=== PATIENT | male | born 1960 | race Caucasian/White ===

== ENCOUNTER 2019-07-08 05:18 | Inpatient (IN) ==
--- NOTE | 2019-07-03 14:34 | Anesthesiology Consultation ---
Date of Service July 03, 2019 Assessment & Plan (1) Encounter for pre-operative examination: COVID Status: As of 07/02 nurse assessment, patient denies travel to endemic area, known exposure/sick contacts, symptoms, or testing for coronavirus. Chart Review Chart Review: Acceptable Risk for Surgery (pending pre-op labs and surgeon- ordered PCP Clearance) and Patient NOT seen in Pre Admission Testing History Surgery Operation Date: 07/08/19 11:50 Proposed Procedures p Left Total Knee Arthroplasty - Dejuan Dillard DO Height/Weight Height: 5 ft 6 in Weight: 86.183 kg Allergies Allergy/AdvReac Type Severity Reaction Status Date / Time morphine AdvReac Mild n/v Verified 07/03/19 13:52 Medications Home Medications Medication Instructions Recorded Confirmed Last Taken calcium carbonate [Tums] 200 mg PO UD PRN 04/23/19 07/03/19 Unknown tamsulosin 0.4 mg PO UD PRN 04/23/19 07/03/19 Unknown Past Medical History Medical History Acid reflux occasional Enlarged prostate History of basal cell cancer back s/p excision Osteoarthritis TMJ (temporomandibular joint disorder) remote hx locking Past Family History Family History Father Family hx of colon cancer Past Surgical History Surgical History History of arthroscopy of left knee History of colonoscopy History of shoulder surgery RIGHT History of total right knee replacement Hx of Achilles tendon repair LEFT Social History Smoking Status: Never smoker Do You Dip or Chew Tobacco: No Hx Alcohol Use: Yes Alcohol type: beer alcohol intake frequency: a few times a month Hx Substance Use: No substance use type: does not use Testing Electrocardiogram Date: 04/24/19 Findings: + NSR @ (62bpm) Chest X-Ray Date: 04/24/19 Findings: + NAD
--- NOTE | 2019-07-07 08:35 | History & Physical Report ---
Date of Service July 07, 2019 date of surgery: 07-08-19 Assessment & Plan (1) Arthritis of knee, left: Risks and benefits of procedure discussed in detail today, patient would like to proceed with a Left total knee replacement at [facility] as scheduled. Will place on ASA 81mg po bid x 1 month post op, f/u 2 weeks post op for routine post-operative care and x-ray, sooner if having any problems. will make arrangements for HHPT at the time of discharge. At this point in time, has failed conservative measures and would like to proceed with surgical intervention. History of Present Illness Chief Complaint: left knee pain Primary Care Provider: Rachael Khan MD Brandon is a 58 year old male who complains of left knee pain, presents for pre-op evaluation prior to a left total knee replacement by dr Dillard at [facility] on 07-08-19. he complains of pain, crepitus, decreased range of motion, instability and stiffness in the left knee. He states that the symptoms have been chronic and non-traumatic. He states that the symptoms occur constantly with intermittent worsening. Currently the patient states that the symptoms are mode rate-severe. The pain is described as aching, sharp and throbbing. The symptoms occur continuously. The symptoms are aggravated by ascending stairs, daily activities, first steps while awake walking. Prior NSAIDs include IBU and Aleve. He has been treated with previous cortisone and visco injections in the past without much relief. he has also had previous left knee scope. Allergies Allergy/AdvReac Type Severity Reaction Status Date / Time morphine AdvReac Mild n/v Verified 07/03/19 13:52 Home Medications Home Medications Medication Instructions Recorded Confirmed Type calcium carbonate [Tums] 200 mg PO UD PRN 04/23/19 07/03/19 History tamsulosin 0.4 mg PO UD PRN 04/23/19 07/03/19 History Past Med/Surg History Medical History Acid reflux occasional Enlarged prostate History of basal cell cancer back s/p excision Osteoarthritis TMJ (temporomandibular joint disorder) remote hx locking Surgical History History of arthroscopy of left knee History of colonoscopy History of shoulder surgery RIGHT History of total right knee replacement Hx of Achilles tendon repair LEFT Family History Father Family hx of colon cancer Social History Preferred Language: German Communication Ability: Effective Social Work Administrator Required: No Beliefs That Will Affect Care: None Current Living Situation: Spouse Feels Safe at Home: Yes Smoking Status: Never smoker Second Hand Exposure: No ; Hx Alcohol Use: Yes Alcohol type: beer Hx Substance Use: No Review of Systems Review of Systems: All systems reviewed & are unremarkable except as noted in HPI & below Constitutional: no fever, no chills and no sweats Respiratory: no cough and no dyspnea Cardiovascular: no chest pain, no dyspnea and no orthopnea Gastrointestinal: no abdominal pain, no nausea and no vomiting Musculoskeletal: as per Subjective / HPI Physical Exam Physical Exam: Ht: 5ft 6in Wt: 86.2kb Constitutional: WD/WN, vitals as above no acute distress Respiratory: normal respiratory effort, lungs clear to auscultation no respiratory distress, no labored breathing and does not use accessory muscles Cardiovascular: RRR, no murmur, no edema Gastrointestinal (Abdomen): normal bowel sounds, soft, nontender, no hepatosplenomegaly Musculoskeletal: Knee: + knee abnormal to inspection (LEFT KNEE), + effusion (+1 effusion), + surgical incision (well healed portals), + limited ROM of knee (ROM 0/3/110), + knee ROM with crepitation, + joint line tenderness (medial joint line) and + Misti's sign positive; no deformity, no skin erythema, no ecchymosis, no valgus laxity, no varus laxity, anterior drawer test negative, Maria Luz's sign negative and pivot shift test negative Results & Data Results & Data ([facility]) Diagnostic Findings left knee series confirm advanced degenerative changes to the left knee, greatest medial compartments and patellofemoral joint, showing joint space narrowing, osteophyte formation and subchondral sclerosis. no acute bony pathology noted.
[2019-07-08] MEDS ORDERED: TRANEXAMIC ACID 1,000 MG **IV Pre-op IV SCH (06:00)
[2019-07-08] MEDS ORDERED: CEFAZOLIN 2000MG 2,000 MG/15 ML SYR IV SCH (06:00)
[2019-07-08] MEDS ORDERED: METOCLOPRAMIDE HCL 10 MG TABLET PO SCH (06:00)
[2019-07-08] MEDS ORDERED: FAMOTIDINE 20 MG TAB PO SCH (06:00)
[2019-07-08] MEDS ORDERED: ROPIVACAINE 0.5% HCL/PF 150 MG, BUPIVACAINE 0.5% MPF 30 ML, EPINEPHrine 30MG/30ML (OR U... INFIL SCH (06:00)
[2019-07-08] MEDS ORDERED: ACETAMINOPHEN 500 MG TAB PO SCH (06:00)
[2019-07-08] MEDS ORDERED: dexAMETHasone 4 MG TAB PO SCH (06:00)
[2019-07-08] MEDS ORDERED: CeleBREX 200 MG CAP PO SCH (06:00)
[2019-07-08] MEDS ORDERED: TRANEXAMIC ACID 1,000 MG **IV Intra-op IV SCH (06:00)
[2019-07-08] MEDS ORDERED: LR 500ML BOLUS, THEN 15ML/HR IV SCH (06:00)
[2019-07-08] MEDS ORDERED: GABAPENTIN 600 MG DOSE PO SCH (06:00)
[2019-07-08] MEDS ORDERED: BUPIVACAINE 0.5 % 5 MG/1 ML PF 10ML VIAL ONE (06:18)
[2019-07-08] MEDS ORDERED: ROPIVACAINE 0.5% 5 MG/ML 30 ML VIAL ONE (06:18)
[2019-07-08] MEDS ORDERED: EPINEPHrine INJ 1 MG/ML AMP ONE (06:18)
[2019-07-08] MEDS ORDERED: fentaNYL citrate 100 MCG/2 ML VIAL ONE (06:54)
[2019-07-08] MEDS ORDERED: PROPOFOL IV EMULSION 10 MG/ML 20 ML VIAL IV ONE ×3 (06:54→08:44)
[2019-07-08] MEDS ORDERED: LIDOCAINE HCL 2% 2 ML VIAL/AMP(20MG/ML) INFIL ONE (06:54)
[2019-07-08] MEDS ORDERED: MIDAZOLAM HCL 1 MG/ML 2ML VIAL ONE (06:54)
[2019-07-08] MEDS ORDERED: BACITRACIN INJ 50,000 UNIT VIAL ONE (06:56)
[2019-07-08] MEDS ORDERED: ORTHO JOINT ANESTHETIC ONE (06:56)
--- NOTE | 2019-07-08 07:15 | History & Physical Bridge Note ---
Date of Service July 08, 2019 History & Physical Bridge Note I have examined the patient, reviewed the History & Physical and in the interval since the performance of the History & Physical I have noted the following changes of clinical significance: no changes noted
[2019-07-08] MEDS ORDERED: ONDANSETRON INJ 2 MG/ML 2 ML VIAL ONE (07:56)
[2019-07-08] MEDS ORDERED: GLYCOPYRROLATE 0.2 MG/ML VIAL ONE (07:56)
[2019-07-08] MEDS ORDERED: DEXAMETHASONE SOD INJ 4 MG/ML VIAL ONE (07:56)
--- NOTE | 2019-07-08 08:27 | Operative Report ---
Post Operative Report Pre & Post Diagnosis Operation Date: 07/08/19 07:15 Pre-Op Diagnosis: LEFT KNEE OSTEOARTHRITIS Post-Op Diagnosis: LEFT KNEE OSTEOARTHRITIS I identified the patient and participated in the time-out.: Yes Procedure Operation Date: 07/08/19 07:15 Actual Procedures p Left Total Knee Arthroplasty(Left) utilizing [employer] [place] 2 patient matched total knee arthroplasty size 6 femur 5 tibia 11 polyethylene 32 oval patella- Dejuan Dillard DO Surgeon Dejuan Dillard DO Kitchen Bath Designer Luis Felipe COLE Estimated Blood Loss 5 Findings Consistent with Post-Op Diagnosis Patient presents with severe end-stage tricompartmental degenerative joint disease varus alignment [id number] subchondral cystic changes marginal osteophytes moderate to large effusion left knee Specimens Bone and cartilage Drains Medium bore Hemovac Anesthesia Type MAC Spinal Regional Complications none Disposition Accompanied Patient To Recovery: No Disposition: Recovery Room Indications Patient presents for left total knee arthroplasty after failed attempted conservative management and physical therapy anti-inflammatories relative rest activity modification corticosteroid injection Visco supplementation bracing the above intraoperative findings no time surgery. Description of Procedure After proper prepping and draping of the left lower extremity anterior midline incision was made over the region of the extensor extensor mechanism after meticulous hemostasis was obtained and maintained in subcutaneous tissues a medial parapatellar incision was made The patella was subluxed lateralward the medial lateral gutter were cleaned from any hypertrophic synovitis and scar tissue of the distal femoral block was placed and the distal femoral osteotomy cut was made subsequently the chamfers anterior and posterior osteotomy cuts were made utilizing the 4-in-1 block the tibia was subsequently subluxed anteriorward medial and ateral meniscal remnants were excised in their entirety remnants of the anterior and posterior cruciate ligaments were excised in their entirety excellent exposure of the proximal tibia was obtained the tibial osteotomy guide was placed on the proximal tibial osteotomy cut was made once again the knee was irrigated with copious amounts of sterile saline solution the patella was subsequently everted lateralward thickened scar tissue around the patella was removed the patella was subsequently cut utilizing a freehand technique and was drilled prepared for final preparation and placement of patella socially flexion-extension gaps were checked and the equal and symmetric trials were placed to the appropriate femoral and tibial trials with poly-spacer being placed for equal flexion and extension gaps and full range of motion including extension to 0 and flexion to 140 the trial components after having been taken to recovery range of motion was subsequently removed meticulous hemostasis was obtained and maintained subsequently a knee block injection of joint cocktail including ropivacaine 0.5% 150 mg. Bupivacaine 0.5% epinephrine 1-200,030 mL's toradol 30 mg dexamethasone 4 mg ketamine 10 mg clonidine 100 micrograms normal saline solution 30 mg was infiltrated into the soft tissues of the posterior knee medial lateral gutters and periosteal synovium special attention was paid to protect neurovascular structures at all times subsequently trial components having been removed the knee was irrigated with sterile saline solution. debris was removed the proximal tibia was subsequently prepared and was made ready for the placement of the tibial component tibial component was also cemented and tamped into position the femoral component was subsequently placed and cemented in the position the patellar component was subsequently cemented in position because hemostasis once again obtained and maintained wound having been thoroughly irrigated with debridement and debridement lavage was performed as well as a medial parapatellar incision closed with #1 Vicryl in interrupted fashion subcutaneous was closed with #2 Vicryl skin was closed with skin clips. PA-C was necessary for prepping and drapping as well as wound closure of deep fascia Sub cutaneous tissue and skin and was necessary for the case. A sterile compressive dressing was placed patient was taken to recovery in stable condition of report dictated by Nishant I attest to the content of the Intraoperative Record and any orders documented therein. Any exceptions are noted below. I attest to the content of the Intraoperative Record and any orders documented therein. Any exceptions are noted below.
[2019-07-08] MEDS ORDERED: ePHEDrine sulfate 50 MG/ML SYR ONE (08:33)
[2019-07-08] MEDS ORDERED: ePHEDrine sulfate 50 MG/ML AMP IV PRN (08:43)
[2019-07-08] MEDS ORDERED: ATROPINE SULFATE 0.1 MG/ML 10ML SYR IV PRN (08:43)
--- NOTE | 2019-07-08 09:36 | XRay Report ---
LEFT KNEE 2 VIEWS History: Left total knee arthroplasty. Degenerative arthritis. Postop. FINDINGS: The patient is status post a left total knee arthroplasty. The hardware is intact. No fract ure or dislocation. Skin karissa and surgical drains are in place. IMPRESSION: Left total knee arthroplasty. No evidence for hardware complication. ACT 112: Negative or not required by law. Electronically signed by: Aleks Childs M.D. 07/08/2019 9:34 AM
--- NOTE | 2019-07-08 09:51 | Anesthesiology Progress Note ---
Date of Service July 08, 2019 Anesthesia Post Procedure Vital Signs Vital Signs: Temp Pulse Pulse Resp BP Pulse Ox 07/08/19 09:35 37.0 C 79 14 111/70 98 07/08/19 09:25 72 17 110/65 99 07/08/19 09:15 81 22 110/66 100 07/08/19 09:05 36.7 C 91 H 15 98/56 L 98 07/08/19 05:37 36.8 C 68 20 132/86 96 Pain Intensity Left Knee: Pain Intensity: 0 Transfer of Care Handoff Completed per policy Notes Mental Status: alert / awake / arousable Patient Amnestic to Procedure: Yes Nausea / Vomiting: adequately controlled Pain: adequately controlled Airway Patency, RR, SpO2: stable & adequate BP & HR: stable & adequate Hydration State: stable & adequate Neuraxial Anesthesia: was administered and sensory block is resolving Anesthetic Complications: no major complications apparent
[2019-07-08] MEDS ORDERED: TAMSULOSIN HCL 0.4 MG CAP PO PRN (10:10)
[2019-07-08] MEDS ORDERED: bisacodyL 10 MG SUPP PR PRN (10:10)
[2019-07-08] MEDS ORDERED: HYDROmorphone INJ 0.5 MG/0.5 ML SYR IV PRN (10:10)
[2019-07-08] MEDS ORDERED: CALCIUM CARBONATE 500 MG CHEWABLE TAB PO PRN (10:10)
[2019-07-08] MEDS ORDERED: MAGNESIUM HYDROXIDE SUSP 30 ML UDC PO PRN (10:10)
[2019-07-08] MEDS ORDERED: ONDANSETRON INJ 2 MG/ML 2 ML VIAL IV PRN (10:10)
[2019-07-08] MEDS ORDERED: NALOXONE HCL 0.4 MG/1 ML VIAL/CARP IV PRN (10:10)
[2019-07-08] MEDS ORDERED: OXYCODONE HCL IR 5 MG TAB (IMMEDIATE RELEASE) PO PRN (10:10)
[2019-07-08] MEDS: SODIUM CHLORIDE 0.9% 1000ML 1,000 ML IV SCH ×2 (10:42→21:08)
[2019-07-08] MEDS: CEFAZOLIN 2000MG 2,000 MG/15 ML SYR IV SCH ×2 (14:25→22:26)
[2019-07-08] MEDS: ACETAMINOPHEN 500 MG TAB PO SCH ×2 (14:26→22:26)
[2019-07-08] MEDS: DOCUSATE SODIUM 100 MG CAP PO SCH (21:07)
[2019-07-08] MEDS: SENNA 8.6 MG TAB PO SCH (21:07)
[2019-07-09 06:21] LABS: Hemoglobin 13.6 g/dL (14.0-18.0); Mean Corpuscular Hemoglobin 31.1 pg (25-34); Mean Corpuscular Hgb Conc 34.9 g/dL (32-36); Mean Corpuscular Volume 89.2 fL (80-100); Mean Platelet Volume 9.6 fL (7.4-10.4); Platelet Count 205 K/uL (130-400); RDW Coefficient of Variation 13.1 % (11.5-14.5); RDW Standard Deviation 42.4 fL (36.4-46.3); Red Blood Count 4.37 M/uL (4.7-6.1); White Blood Count 10.86 K/uL (4.8-10.8)
[2019-07-09] MEDS: ACETAMINOPHEN 500 MG TAB PO SCH ×3 (06:27→21:03)
[2019-07-09 06:51] LABS: BUN Creatinine Ratio 13.4 (10-20); Calcium 8.1 mg/dl (8.5-10.1); Creatinine Clr Calc Pharmacy 62.7 ml/min; Est GFR (Non-African American) 58.6
[2019-07-09] MEDS: DOCUSATE SODIUM 100 MG CAP PO SCH ×2 (08:33→21:04)
[2019-07-09] MEDS: MULTIVITAMIN TAB PO SCH (08:33)
--- NOTE | 2019-07-09 08:56 | Orthopedic Progress Note ---
Date of Service July 09, 2019 Assessment & Plan (1) Status post total left knee replacement: POD#1 Left TKA -PT/OT -Pain management -DVT prophylaxis-SCDs, TEDs, ASA 81mg BID x 1 mo -AM labs-hemoglobin at 13.6 this morning down from 16.4 pre op, acute blood loss anemia likely due to surgical loss and dilutional effect -D/C planning-Discharge home likely tomorrow. Will plan on HEP to start due to COVID-19 situation and will progress to OPPT. Admission and Anticipated Discharge Date Admission Date: July 08, 2019 Subjective POD #1 left TKA, patient is doing well, no complaints. Mild discomfort but overall states knee feels good. He is up ambulating around. Denies chest pain, sob, dizziness, light headedness. Is voiding without difficulty. Review of Systems Review of Systems: All systems reviewed & are unremarkable except as noted in HPI & below Physical Exam Physical Exam: Left knee dressing is c/d/i. Toes mobile, good dorsiflexion. No calf tenderness. Distally n/v status and sensation intact. Hemovac drain in place. Results & Data ([facility]) Vital Signs (Past 12 Hours) Vital Signs Temp Pulse Resp BP BP Pulse Ox 07/09/19 07:43 36.3 C L 62 16 121/75 95 07/09/19 03:10 36.6 C 69 18 117/69 97 07/08/19 23:17 36.5 C 77 18 113/62 93 Laboratory Results H & H 07/09/19 Range/Units 06:04 Hgb 13.6 L (14.0-18.0) g/dL Hct 39.0 L (42-52) %
[2019-07-09] MEDS: HYDROCODONE/ACETAMOPHEN 5/325MG TAB PO PRN ×2 (13:16→19:46)
[2019-07-09] MEDS: KETOROLAC TROMETHAMINE 15 MG/ML VIAL IV PRN (21:03)
[2019-07-09] MEDS: ASPIRIN 81 MG ECTAB PO SCH (21:03)
[2019-07-09] MEDS: SENNA 8.6 MG TAB PO SCH (21:04)
[2019-07-10] MEDS: KETOROLAC TROMETHAMINE 15 MG/ML VIAL IV PRN ×2 (04:27→10:22)
[2019-07-10] MEDS: ACETAMINOPHEN 500 MG TAB PO SCH (05:46)
[2019-07-10] MEDS: DOCUSATE SODIUM 100 MG CAP PO SCH (08:25)
[2019-07-10] MEDS: MULTIVITAMIN TAB PO SCH (08:25)
[2019-07-10] MEDS: ASPIRIN 81 MG ECTAB PO SCH (08:25)
--- NOTE | 2019-07-10 08:43 | Orthopedic Progress Note ---
Date of Service July 10, 2019 Assessment & Plan (1) Status post total left knee replacement: POD#2 Left TKA -PT/OT -Pain management -DVT prophylaxis-SCDs, TEDs, ASA 81mg BID x 1 mo -D/C planning-Discharge home today. Will plan on HEP to start due to COVID-19 situation and will progress to OPPT. Admission and Anticipated Discharge Date Admission Date: July 08, 2019 Subjective Postop day 2 Patient currently sitting up in bed awake and alert. No complaints. Pain is controlled. Denies shortness of breath, chest pain, lightheadedness. He is hoping to go home today. Physical Exam Physical Exam: Silverlon dressing is clean, dry, and intact. Calves are soft nontender. Neurovascular is intact. Toes are mobile. He has good dorsiflexion/plantar flexion strengths. Results & Data ([facility]) Vital Signs (Past 12 Hours) Vital Signs Temp Pulse Resp BP Pulse Ox 07/10/19 06:42 36.3 C L 65 19 127/80 95 07/09/19 23:08 36.9 C 68 19 128/79 96
--- NOTE | 2019-07-16 12:44 | Discharge Summary ---
Date of Service July 16, 2019 Admission HPI Per Admitting Provider Brandon is a 58 year old male who complains of left knee pain, presents for pre-op evaluation prior to a left total knee replacement by dr Dillard at [facility] on 07-08-19. he complains of pain, crepitus, decreased range of motion, instability and stiffness in the left knee. He states that the symptoms have been chronic and non-traumatic. He states that the symptoms occur constantly with intermittent worsening. Currently the patient states that the symptoms are moderate-severe. The pain is described as aching, sharp and throbbing. The symptoms occur continuously. The symptoms are aggravated by ascending stairs, daily activities, first steps while awake walking. Prior NSAIDs include IBU and Aleve. He has been treated with previous cortisone and visco injections in the past without much relief. he has also had previous left knee scope. Admission Exam Per Admitting Provider Physical Exam: Ht: 5ft 6in Wt: 86.2kb Constitutional: WD/WN, vitals as above no acute distress Respiratory: normal respiratory effort, lungs clear to auscultation no respiratory distress, no labored breathing and does not use accessory muscles Cardiovascular: RRR, no murmur, no edema Gastrointestinal (Abdomen): normal bowel sounds, soft, nontender, no hepatosplenomegaly Musculoskeletal: Knee: + knee abnormal to inspection (LEFT KNEE), + effusion (+1 effusion), + surgical incision (well healed portals), + limited ROM of knee (ROM 0/3/110), + knee ROM with crepitation, + joint line tenderness (medial joint line) and + Misti's sign positive; no deformity, no skin erythema, no ecchymosis, no valgus laxity, no varus laxity, anterior drawer test negative, Maria Luz's sign negative and pivot shift test negative Principal Diagnosis DJD left knee Discharge Exam Silverlon dressing is clean, dry, and intact. Calves are soft nontender. Neurovascular is intact. Toes are mobile. He has good dorsiflexion/plantar flexion strengths. Discharge Data Allergies Allergy/AdvReac Type Severity Reaction Status Date / Time morphine AdvReac Mild n/v Verified 07/08/19 05:53 Consultations 07/08/19 10:10 Consult Case Management - Discharge Planning Routine Procedures Performed Operation Date: 07/08/19 07:15 Actual Procedures p Left Total Knee Arthroplasty(Left) - Dejuan Dillard DO Ordered Studies 07/08/19 05:00 US - OR guided needle placemen Routine Hospital Course (1) Arthritis of knee, left: Patient was admitted on the above-noted date and had the above-noted surgery performed which he tolerated well.On his first postoperative day, he was doing well without complaints. He was up ambulating and denied chest pain, shortness of breath, lightheadedness. He was voiding without difficulty. Dressing was clean, dry, and intact. Toes are mobile. He had good dorsiflexion. Calves were soft and nontender and neurovascular was intact. Hemoglobin was 13.6. He was started on a PT and OT protocols and was continued on DVT prophylaxis and pain management. By his second postoperative day, he was awake and alert without complaints. Pain was controlled. Silverlon dressing was clean, dry, and intact. Calves were soft nontender. Neurovascular was intact. Toes were mobile. Vital signs are stable. He was progressing well with his physical therapy and was felt he be discharged home. Total Time Total Time Spent Total Time Spent (In Minutes): 5 Discharge Plan Discharge Items Patient Disposition: Home - Self-Care Reason For Visit: LEFT KNEE OSTEOARTHRITIS Discharge Diagnosis: Left knee osteoarthritis Activity: Per Instructions section Weightbearing: Left weightbearing Weightbearing Comment: As tolerated with walker Non-emergency contact: Surgeon Call non-emergency contact if: your pain is not controlled, your temperature is above 101.5, your wound has increased redness and your wound has increased drainage Follow-up/Referrals: Rachael Khan MD [Primary Care Provider] - Diet: Regular Addtl Attending Provider Instructions: ACTIVITY RECOMMENDATIONS: SELF CARE INSTRUCTIONS AFTER TOTAL KNEE REPLACEMENT A. You may need to continue a physical therapy program after discharge from the hospital. There are several options available to you. Your doctor will assist you in selecting the best one for you. 1. An out-patient facility 2 to 3 times a week for therapy or home therapy. 2. Continue working on all exercises taught to you in the hospital. Your goals should be to increase bending of your knee to 90 degrees and beyond and to fully straighten your knee. B. You may progress at your own pace from walking with a walker or crutches to a cane; then to no assistive devices. C. Make walking a part of your daily routine. Be up as much as comfortable with rest periods throughout the day. Rest with leg elevation is very important. Use the ice wrap frequently for the first 3-4 weeks. D. There are no restrictions on activities. You may ride in a car, shop, participate in manufacturing technician and all social activities. E. Wear the long elastic stockings (JONN hose) 20 hours a day for 2 weeks after surgery. They can be removed several times a day for laundering and for a bath. F. You may shower, no tub baths until cleared by your doctor. SPECIAL CARE INSTRUCTIONS: VERY IMPORTANT TO READ AND REVIEW A. There are a few signs you need to watch for after you are home. Call [facility] if you notice any of the followin. Increased severe knee pain. Some pain is expected especially when you exercise. 2. Increased swelling in your leg or knee; pain or swelling of the calf muscle in either lower leg. 3. Any fluid drainage from the incision. 4. Shortness of breath or chest pain. B. Please call [facility] at if you have any concerns or questions about your operation or recovery. The doctor or his nurse will return your call promptly. C. You must take antibiotics before dental work, bladder, bowel or other surgery. Your doctor will provide you with a permanent care to carry describing this precaution. IMPORTANT: * REMEMBER TO TAKE ASPIRIN, 81 MG, TWICE DAILY FOR 4 WEEKS UNLESS OTHERWISE DIRECTED. THIS IS YOUR BLOOD THINNER. * HIGH RISK PATIENTS MAY BE PRESCRIBED A STRONGER BLOOD THINNER. THIS WILL BE PROVIDED AT DISCHARGE. * CALL IF INCREASED PAIN, REDNESS, DRAINAGE OR FEVER GREATER THAT 101. * WEAR OJNN HOSE 20 HOURS PER DAY FOR 2 WEEKS. * Silverlon- This is a large adhesive bandage that contains silver ions. This helps your incision heal by fighting off bacteria and protecting it from the outside environment. You are permitted to shower with this dressing. This will remain on your incision for 7 days and then should be removed. Some visible blood or drainage through the dressing window is normal. If there is significant drainage or leaking noted before the 7 days notify your doctor's office immediately. Once removed, keep incision clean and dry. If there is any drainage or redness noted, please call your surgeon. . FOLLOW UP VISIT: If appointment is not already scheduled: Please call [facility] to make a follow-up appointment for 2 weeks after your surgery at . Stand-Alone Forms: [facility], [facility]ioid [facility] Management, Smoking Cessation Medications and DC Order Prescriptions: New sennosides [Senokot] 8.6 mg Tablet 17.2 mg PO HS Qty: 30 RF: 0 aspirin 81 mg Tablet,Delayed Release (Dr/Ec) 81 mg PO BID 30 Days Qty: 60 RF: 0 acetaminophen 500 mg Tablet 1,000 mg PO Q8 14 Days Qty: 84 RF: 0 hydrocodone-acetaminophen 5-325 mg tablet 1 - 2 tab PO Q6H PRN (Reason: pain) Qty: 30 RF: 0 Continued tamsulosin 0.4 mg Capsule 0.4 mg PO UD PRN (Reason: URINARY FLOW ) RF: 0 calcium carbonate [Tums] 200 mg calcium (500 mg) Tablet,Chewable 200 mg PO UD PRN (Reason: Acid Reflux) RF: 0 Discharge Orders: Discharge Order (Routine); Ordered 07/10/19 Ordered By: Luis Felipe Mcclendon/Other Patient Handouts: DVT, ED ANTI-EMBOLISM STOCKINGS Admission Data Admit Date/Time: 07/08/19 09:12 Attending Provider: Dejuan Dillard Admit Provider: Dejuan Dillard Primary Care Provider: Rachael Khan Other Interventions: Discharge Summary Assessment (RN) Last Done: 07/10/19 10:34 DC Date/Time DO NOT enter until pt leaves facility: 07/10/19 11:41
== END 2019-07-10 11:41 | disposition home or self-care (01) | DRG 470 ==
LOC: ASU 05:18 → 3N 09:12
DX: Z96.653 Presence of artificial knee joint, bilateral; Z88.5 Allergy status to narcotic agent; M17.12 Unilateral primary osteoarthritis, left knee